=== PATIENT | male | born 1995 | race Caucasian/White ===

== ENCOUNTER → 2018-05-01 18:37 | Outpatient (CLI) | payer OTHER, SELFPAY | PROVIDERS: Visit Provider Physician Assistant | DX: L03.031 Cellulitis of right toe (principal) | CPT/HCPCS: 87070; 87075; 87077; 87147; 87186; 87205 ==

== ENCOUNTER 2018-08-12 13:52 | Day surgery (SDC) | payer OTHER, SELFPAY ==
[2018-08-12 14:29] VITALS: BP 112/69; PULSE 49; RESP 12; TEMP 36.4; O2SAT 97; BMI 37.6
--- NOTE | 2018-08-12 16:34 | PM.PREOP ---
Pre-operative Note Interval Note History & Physical reviewed/Exam performed by Physician: Yes Changes to H&P: No
--- NOTE | 2018-08-12 16:34 | PM.OP.1 ---
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 Surgical intervention is desired. Surgeon: Noni Tan Click Yes if Unassisted: Yes Anesthesia Type: General Operative Notes Closure Type: primary Specimen(s): none sent Estimated Blood Loss (mL): 1 Blood products transfused: none Tourniquet time (min): 10 Procedure in detail: Patient was brought to the operating room and placed on the operative table in supine position. Following induction of general anesthesia , local anesthesia was delivered to the great toe. The foot was prepped and draped in the usual aseptic manner. After check of anesthesia a Alberto drain was placed about the right hallux. The hallux nail was removed gently in total. The surrounding skin medially and laterally on the nail folds was sharply excised of its granulomatous hyperplastic tissue. Examining the tissue, there was no abscess purulence or other indication that it was any different type of tissue then the other surrounding tissues. It was just enlarged. This was larger on the more lateral aspect and a little bit less on the more medial aspect. After resecting it on each side I was able to curette this down as well and the area was irrigated with copious amounts of normal sterile saline. The alberto tourniquet was removed, a prompt hyperemic response was seen to the toe. Nylon sutures were placed in the skin that had had its resection taken from it and closed gently onto the nail bed itself distal to the matrix. The area was cleaned and central aspect dressed with triple antibiotic ointment. Xeroform, 4x4s, and gently placed coban was placed over the toe as was a stockinette and his postsurgical shoe. Complications: none Condition: stable Disposition: PACU Plan for aftercare: Following a period of postoperative monitoring, the patient be discharged home on written and oral postoperative instructions including keeping the dressing dry and intact, avoiding significant ambulation on the foot, elevating the foot when seated at home. DVT prevention techniques have been reviewed. For the 1st postoperative visit the dressing will be changed, and will review opportunity for suture removal at that time or the following week.
[2018-08-12] MEDS: CEFAZOLIN 2 GM/100 ML FROZ.PIGGY IV (16:45)
[2018-08-12] MEDS: BUPIVACAINE 0.5% (PF) VIAL 30 ML INJ (17:12)
--- NOTE | 2018-08-12 17:13 | SUR.OPER ---
Supine on padded OR bed, head on pillow, arms secured on padded arm boards at <90 degrees abduction, legs uncrossed, safety belt at abdomen, tape over blanket over nonoperative leg, bump under operative hip.
[2018-08-12] MEDS: BACITRACIN 28 GM OINT 1 APPLIC TOP (17:16)
--- NOTE | 2018-08-12 17:17 | SUR.OPER ---
[place] drain used as tourniquet on right great toe. Total tourniquet time: 7 minutes.
[2018-08-12 17:31] VITALS: BP 103/56; PULSE 52; RESP 14; TEMP 37; O2SAT 96
[2018-08-12 17:36] VITALS: BP 107/61; PULSE 50; RESP 14; O2SAT 98
[2018-08-12 17:41] VITALS: BP 107/61; PULSE 50; RESP 10; O2SAT 98
[2018-08-12 17:48] VITALS: BP 114/59; PULSE 50; RESP 12; TEMP 36.8; O2SAT 100
[2018-08-12 17:53] VITALS: BP 113/61; PULSE 52; RESP 12; O2SAT 100
== END 2018-08-12 18:25 | disposition home or self-care (01) ==
PROVIDERS: Visit Provider Podiatrist
PROC: 0HTRXZZ Resection of Toe Nail, External Approach (ICD-10-PCS; CPT 11730; principal; 2018-08-12 15:00)
DX: L60.0 Ingrowing nail (principal); L85.9 Epidermal thickening, unspecified
CPT/HCPCS: 11730; J0690; J1100; J1885; J2250; J2405; J2704; J3010

== ENCOUNTER 2019-08-13 03:53 | Observation (INO) | payer OTHER, SELFPAY ==
[2019-08-13] VITALS (19 sets, daily range): BP systolic 110–153; BP diastolic 50–93; PULSE 53–96; RESP 10–99; TEMP 36.2–36.8; O2SAT 90–100; BMI 34.8
--- NOTE | 2019-08-13 04:02 | ED_ITS ---
HPI - General Adult <DO Guillermo Wilkes Last Filed: 08/13/19 18:08> General Chief complaint: Extremity Injury, Upper Stated complaint: exposed bone on right finger Time Seen by Provider: 08/13/19 03:55 Source: patient Mode of arrival: Ambulatory Limitations: no limitations History of Present Illness HPI narrative: 24-year-old [id number] male here for evaluation of an injury that he sustained to his right index finger while at work. Patient states he is working with an air hose and a conveyor belt when his finger got caught up in these devices and a portion of the tip of his right index finger was injured. Patient also has some other abrasions on his hand. He covered the area and a bandage. Was brought to the emergency department. Does not know when his last tetanus shot was. Related Data Previous Rx's Medication Instructions Recorded cephalexin 500 mg PO TID #30 cap 08/13/19 hydrocodone-acetaminophen 1 tab PO Q4HR PRN #40 tab 08/13/19 Allergies Allergy/AdvReac Type Severity Reaction Status Date / Time grass pollen Allergy Mild Seasonal Verified 08/13/19 12:56 Allergies Review of Systems <DO Guillermo Wilkes Last Filed: 08/13/19 18:08> Musculoskeletal Musculoskeletal: Denies numbness and Denies tingling Comments: Pain right index finger Integumentary/Breasts Comments: Cut to the tip of his right index finger Neurologic Neurologic: Denies numbness and Denies tingling Hematologic/Lymphatic Hematologic/Lymphatic: Denies easy bleeding and Denies easy bruising Patient History <DO Guillermo Wilkes Last Filed: 08/13/19 18:08> Medical History Patient denies medical problems (Acute) Social History household members: family Smoking Status: Current some day smoker alcohol intake: current Smoking Status: Current some day smoker (Social smoker bought packs but not for myself) Exam <DO Guillermo Wilkes Last Filed: 08/13/19 18:08> Initial Vital Signs Initial Vital Signs: Vital Signs Temperature 98 F 08/13/19 04:02 Pulse Rate 77 08/13/19 04:02 Respiratory Rate 18 08/13/19 04:02 Blood Pressure 142/81 H 08/13/19 04:02 Pulse Oximetry 97 08/13/19 04:02 Const General: cooperative Limitations: mental status not altered HENDE Head: normal to inspection and normocephalic Resp Effort & Inspection: normal respiratory effort Cardio Pulses: radial pulses present on the right Skin Other: Patient with superficial abrasions located on his middle and ring finger of the right hand. Patient does have an avulsion of the volar aspect of the right index finger from just distal of the D IP joint to the tip of the finger. It does not involve the nail. Soft tissue and bone exposed. Neuro Other: Decreased sensation to the tip of the right index finger. Extrem General: full ROM and capillary refill normal <Heather Garner DO - Last Filed: 08/13/19 14:57> Initial Vital Signs Initial Vital Signs: Vital Signs Temperature 98 F 08/13/19 04:02 Pulse Rate 77 08/13/19 04:02 Respiratory Rate 18 08/13/19 04:02 Blood Pressure 142/81 H 08/13/19 04:02 Pulse Oximetry 97 08/13/19 04:02 Procedures <Zelalem Evans DO - Last Filed: 08/13/19 18:08> Nerve Block Nerve Block 1: Time out performed: Yes Local Anesthetic: lidocaine 1% and with bicarb Amount of anesthesia used (mL): 5 Side: right Nerve Blocks: digital (Index finger) Procedure Successful: Yes Patient Tolerated Procedure: Well Complications: none Course <Zelalem Evans DO - Last Filed: 08/13/19 18:08> Orders Ordered: Discontinued Medications Hydrocodone Bitart/Acetaminophen ([place] 5/325) 1 tab PO Q4HR PRN PRN Reason: Pain, Moderate (4-6) Bupivacaine HCl (Sensorcaine 0.5% (Pf)) 30 ml INJ NOW ONE Stop: 08/13/19 14:13 Last Admin: 08/13/19 13:45 Dose: 10 ml Documented by: BUCKY Cephalexin HCl (Keflex) 500 mg PO TID LIDIA Last Admin: 08/13/19 16:30 Dose: 500 mg Documented by: COLTEN Diphtheria/Tetanus/Acell Pertussis (Adacel) 0.5 ml IM .ONCE ONE Stop: 08/13/19 04:03 Last Admin: 08/13/19 04:15 Dose: 0.5 ml Documented by: DEENA Fentanyl (Sublimaze) 50 mcg IV Q5MIN PRN PRN Reason: Pain, Severe (7-10) Fentanyl (Sublimaze) 0 mcg IV Q5M PRN PRN Reason: Pain, Moderate (4-6) Cefazolin Sodium/Dextrose (Ancef) 2 gm in 100 mls @ 200 mls/hr IV NOW ONE Stop: 08/13/19 05:24 Last Infusion: 08/13/19 05:27 Dose: 0 mls/hr Documented by: Admin: 08/13/19 04:59 Dose: 200 mls/hr Documented by: DEENA Cefazolin Sodium/Dextrose (Ancef) 2 gm in 100 mls @ 200 mls/hr IV NOW ONE Stop: 08/13/19 11:21 Last Infusion: 08/13/19 13:50 Dose: 0 mls/hr Documented by: Admin: 08/13/19 13:30 Dose: 200 mls/hr Documented by: DAVIS Lactated Ringer's (Lactated Ringers) 1,000 mls @ 42 mls/hr IV CONT LIDIA Last Infusion: 08/13/19 15:41 Dose: 0 mls/hr Documented by: Admin: 08/13/19 13:12 Dose: 42 mls/hr Documented by: NILDA Lidocaine/Sodium Bicarbonate (Buffered Lidocaine 10 Ml Syr) 10 ml INJ NOW ONE Stop: 08/13/19 04:03 Last Admin: 08/13/19 04:17 Dose: 10 ml Documented by: DEENA Meperidine HCl (Demerol) 25 mg IV PACUNOW PRN PRN Reason: Moderate pain or shivering Metoclopramide HCl (Reglan) 10 mg IV NOW PRN PRN Reason: Nausea And Vomiting Midazolam HCl (Versed) 2 mg IV NOW PRN PRN Reason: Anxiety Morphine Sulfate (Morphine) 2 mg IV NOW ONE Stop: 08/13/19 08:35 Last Admin: 08/13/19 09:06 Dose: 2 mg Documented by: JESSY Morphine Sulfate (Morphine) 2 mg IV NOW ONE Stop: 08/13/19 10:17 Last Admin: 08/13/19 10:20 Dose: 2 mg Documented by: RSTONE Ondansetron HCl (Zofran) 4 mg IV NOW PRN PRN Reason: Nausea And Vomiting Oxycodone/Acetaminophen (Percocet 5/325) 1 tab PO PACUNOW PRN PRN Reason: Mild or Moderate Pain Vital Signs Vital signs: Vital Signs - 8 hr 08/13/19 08:01 Pulse Rate 64 Respiratory Rate 16 Blood Pressure [Left Arm] 141/66 H Pulse Oximetry 97 <Heather Garner, DO - Last Filed: 08/13/19 14:57> Orders Ordered: Discontinued Medications Hydrocodone Bitart/Acetaminophen ([place] 5/325) 1 tab PO Q4HR PRN PRN Reason: Pain, Moderate (4-6) Bupivacaine HCl (Sensorcaine 0.5% (Pf)) 30 ml INJ NOW ONE Stop: 08/13/19 14:13 Last Admin: 08/13/19 13:45 Dose: 10 ml Documented by: BUCKY Cephalexin HCl (Keflex) 500 mg PO TID LIDIA Last Admin: 08/13/19 16:30 Dose: 500 mg Documented by: OCLTEN Diphtheria/Tetanus/Acell Pertussis (Adacel) 0.5 ml IM .ONCE ONE Stop: 08/13/19 04:03 Last Admin: 08/13/19 04:15 Dose: 0.5 ml Documented by: DEENA Fentanyl (Sublimaze) 50 mcg IV Q5MIN PRN PRN Reason: Pain, Severe (7-10) Fentanyl (Sublimaze) 0 mcg IV Q5M PRN PRN Reason: Pain, Moderate (4-6) Cefazolin Sodium/Dextrose (Ancef) 2 gm in 100 mls @ 200 mls/hr IV NOW ONE Stop: 08/13/19 05:24 Last Infusion: 08/13/19 05:27 Dose: 0 mls/hr Documented by: Admin: 08/13/19 04:59 Dose: 200 mls/hr Documented by: DEENA Cefazolin Sodium/Dextrose (Ancef) 2 gm in 100 mls @ 200 mls/hr IV NOW ONE Stop: 08/13/19 11:21 Last Infusion: 08/13/19 13:50 Dose: 0 mls/hr Documented by: Admin: 08/13/19 13:30 Dose: 200 mls/hr Documented by: DAVIS Lactated Ringer's (Lactated Ringers) 1,000 mls @ 42 mls/hr IV CONT LIDIA Last Infusion: 08/13/19 15:41 Dose: 0 mls/hr Documented by: Admin: 08/13/19 13:12 Dose: 42 mls/hr Documented by: NILDA Lidocaine/Sodium Bicarbonate (Buffered Lidocaine 10 Ml Syr) 10 ml INJ NOW ONE Stop: 08/13/19 04:03 Last Admin: 08/13/19 04:17 Dose: 10 ml Documented by: DEENA Meperidine HCl (Demerol) 25 mg IV PACUNOW PRN PRN Reason: Moderate pain or shivering Metoclopramide HCl (Reglan) 10 mg IV NOW PRN PRN Reason: Nausea And Vomiting Midazolam HCl (Versed) 2 mg IV NOW PRN PRN Reason: Anxiety Morphine Sulfate (Morphine) 2 mg IV NOW ONE Stop: 08/13/19 08:35 Last Admin: 08/13/19 09:06 Dose: 2 mg Documented by: JESSY Morphine Sulfate (Morphine) 2 mg IV NOW ONE Stop: 08/13/19 10:17 Last Admin: 08/13/19 10:20 Dose: 2 mg Documented by: SARAH Ondansetron HCl (Zofran) 4 mg IV NOW PRN PRN Reason: Nausea And Vomiting Oxycodone/Acetaminophen (Percocet 5/325) 1 tab PO PACUNOW PRN PRN Reason: Mild or Moderate Pain Vital Signs Vital signs: Vital Signs - 8 hr 08/13/19 08:01 Pulse Rate 64 Respiratory Rate 16 Blood Pressure [Left Arm] 141/66 H Pulse Oximetry 97 Medical Decision Making <Zelalem Evans DO - Last Filed: 08/13/19 18:08> Lab Data Lab results reviewed: Yes I reviewed the patient's lab results. Result diagrams: 08/13/19 05:00 08/13/19 05:00 Labs: Lab Results 08/13/19 08/13/19 08/13/19 Range/Units 05:00 05:00 08:30 WBC 9.6 (4.5-11.0) X10^3/uL RBC 4.79 (4.5-5.9) X10^6/uL Hgb 14.4 (13.5-17.5) g/dL Hct 42.3 (41-53) % MCV 88.4 (80-100) fL MCH 30.2 (26-34) PG MCHC 34.1 (30-36) % RDW 13.1 (11.6-14.8) % Plt Count 325 (150-400) X10^3/uL Neut % (Auto) 66.9 (50-75) % Lymph % (Auto) 23.4 L (25-40) % Pacific % (Auto) 7.2 (3-14) % Eos % (Auto) 1.9 L (2-4) % Baso % (Auto) 0.6 (0-2) % Neut # (Auto) 6400 (1239-1171) /uL Lymph # (Auto) 2200 (8432-1716) /uL Pacific # (Auto) 700 (0-900) /uL Eos # (Auto) 200 (0-450) /uL Baso # (Auto) 100 (0-100) /uL Sodium 137 (137-145) mmol/L Potassium 3.7 (3.4-5.1) mmol/L Chloride 101 (98-107) mmol/L Carbon Dioxide 27 (22-32) mmol/L BUN 14 (9-20) mg/dL Creatinine 0.96 (0.66-1.25) mg/dL Estimated GFR > 60.0 (>60) mL/min BUN/Creatinine Ratio 14.6 (6-22) Glucose 106 H (70-100) mg/dL Calcium 9.7 (8.4-10.2) mg/dL COVID-19 PCR Negative (Negative) Imaging Data Extremity x-ray #1: Attestation: I personally reviewed and interpreted this imaging study as follows: My Impression: Soft tissue missing however no fractures MDM Narrative Medical decision making narrative: The patient tetanus was updated. Digital block performed so we could evaluate his index finger. Patient does have tissue loss to the volar aspect of the index finger distal to the PIP joint. There is approximately 0.5-1 cm of the distal phalanx exposed. Unable to cover this area with the surrounding soft tissue. The wound was cleaned extensively and Vaseline gauze and bandage placed over the area. Discussed the case with Dr. Madrid who is on for Orthopedics who will come and evaluate the patient in the emergency department for potential surgical intervention. Antibiotics administered. Patient kept NPO. Care turned over to day provider pending ortho evaluation <Heather Patsy, DO - Last Filed: 08/13/19 14:57> Lab Data Labs: Lab Results 08/13/19 08/13/19 08/13/19 Range/Units 05:00 05:00 08:30 WBC 9.6 (4.5-11.0) X10^3/uL RBC 4.79 (4.5-5.9) X10^6/uL Hgb 14.4 (13.5-17.5) g/dL Hct 42.3 (41-53) % MCV 88.4 (80-100) fL MCH 30.2 (26-34) PG MCHC 34.1 (30-36) % RDW 13.1 (11.6-14.8) % Plt Count 325 (150-400) X10^3/uL Neut % (Auto) 66.9 (50-75) % Lymph % (Auto) 23.4 L (25-40) % Pacific % (Auto) 7.2 (3-14) % Eos % (Auto) 1.9 L (2-4) % Baso % (Auto) 0.6 (0-2) % Neut # (Auto) 6400 (7709-8603) /uL Lymph # (Auto) 2200 (4602-3677) /uL Pacific # (Auto) 700 (0-900) /uL Eos # (Auto) 200 (0-450) /uL Baso # (Auto) 100 (0-100) /uL Sodium 137 (137-145) mmol/L Potassium 3.7 (3.4-5.1) mmol/L Chloride 101 (98-107) mmol/L Carbon Dioxide 27 (22-32) mmol/L BUN 14 (9-20) mg/dL Creatinine 0.96 (0.66-1.25) mg/dL Estimated GFR > 60.0 (>60) mL/min BUN/Creatinine Ratio 14.6 (6-22) Glucose 106 H (70-100) mg/dL Calcium 9.7 (8.4-10.2) mg/dL COVID-19 PCR Negative (Negative) MDM Narrative Medical decision making narrative: I received sign-out from Dr. Evans been in to see and evaluate patient he is now requiring some pain medicine. Dr. Madrid has already been in to see patient patient will be going to the OR Discharge Plan Departure Patient Disposition: Admitted as Observation Clinical Impression: Traumatic amputation of tip of index finger Qualifiers: Encounter type: initial encounter Laterality: right Qualified Code(s): S68.110A - Complete traumatic metacarpophalangeal amputation of right index finger, initial encounter Discharge Date/Time: 08/13/19 10:38 Instructions: DI for Prescription Opioid Use, DI for Incision and Drainage Referrals: Cecilia Madrid MD [Physician] - Admit Date/Time: 08/13/19 10:05 Admit Provider: Cecilia Madrid
--- NOTE | 2019-08-13 04:03 | DI.RAD.S_ITS ---
PROCEDURE: XR HAND RT MIN 3V INDICATIONS: Right index finger injury TECHNIQUE: Three views of the hand(s) acquired. COMPARISON: None. FINDINGS: Bones: The bones are intact without fracture. Soft tissues: Soft tissues surrounding the tuft of the 2nd digit are missing, presumably a function of traumatic amputation. The distal phalanx is intact with no evidence of fracture, although there is exposed bone along the volar surface. IMPRESSION: Soft tissue amputation of the 2nd digit surrounding the tuft of the distal phalanx, with exposed bone. Dictated by: Joesph Pineda M.D. on 08/13/2019 at 8:47 Approved by: Joesph Pineda M.D. on 08/13/2019 at 8:49
[2019-08-13] MEDS: TET,DIPH,PERTUSS(ACELL),VAC/PF 0.5 ML SYRINGE IM (04:15)
[2019-08-13] MEDS: LIDO 1%/SOD BICARB 8.4% (10ML) 10 ML SYRINGE INJ (04:17)
[2019-08-13] MEDS: CEFAZOLIN 2 GM/100 ML FROZ.PIGGY IV ×2 (04:59→13:30)
[2019-08-13 05:19] LABS: Add Manual Diff / Slide Review NO; Basophils Absolute Auto 100 /uL (0-100); Basophils Percent Auto 0.6 % (0-2); Eosinophils Absolute Auto 200 /uL (0-450); Eosinophils Percent Auto 1.9 % (2-4); Hematocrit 42.3 % (41-53); Hemoglobin 14.4 g/dL (13.5-17.5); Lymphocytes Absolute Auto 2200 /uL (1100-4500); Lymphocytes Percent Auto 23.4 % (25-40); Mean Corpuscular HGB Conc 34.1 % (30-36); Mean Corpuscular Hemoglobin 30.2 PG (26-34); Mean Corpuscular Volume 88.4 fL (80-100); Monocytes Absolute Auto 700 /uL (0-900); Monocytes Percent Auto 7.2 % (3-14); Neutrophils Absolute Auto 6400 /uL (1500-7000); Neutrophils Percent Auto 66.9 % (50-75); Platelet Count 325 X10^3/uL (150-400); Red Blood Cell Count 4.79 X10^6/uL (4.5-5.9); Red Cell Distribution Width 13.1 % (11.6-14.8); White Blood Cell Count 9.6 X10^3/uL (4.5-11.0)
[2019-08-13 05:30] LABS: BUN Creatinine Ratio 14.6 (6-22); Blood Urea Nitrogen 14 mg/dL (9-20); Calcium 9.7 mg/dL (8.4-10.2); Carbon Dioxide 27 mmol/L (22-32); Chloride 101 mmol/L (98-107); Estimated Glomerular Filt Rate > 60.0 mL/min (>60); Glucose 106 mg/dL (70-100); HEMOLYSIS < 15 (0-50); Potassium 3.7 mmol/L (3.4-5.1); Sodium 137 mmol/L (137-145)
[2019-08-13] MEDS: MORPHINE 2 MG/ML INJ IV ×2 (09:06→10:20)
[2019-08-13 09:31] LABS: COVID19 -Nasal RAPID Negative (Negative)
--- NOTE | 2019-08-13 10:40 | P.HP_ITS ---
History of Present Illness History of Present Illness Date Patient Seen: 08/13/19 Time Patient Seen: 07:40 Date of Onset of Symptoms: 08/13/19 Chief complaint: exposed bone on right finger Narrative: This is a 24-year-old gentleman who works at [employer] who accidentally got his right index finger caught in a mechanical machine last [employer] at about 3:00 a.m.. He was brought to [facility] for evaluation of a partial amputation of his right index finger. He is right-hand dominant he has not had prior problems with his right finger Patient History Medical History Patient denies medical problems (Acute) Family & Social History Social History: household members family Safety & Behavioral: Feels Safe in Current Yes Environment Tobacco & Substance use: Smoking Status Current some day smoker alcohol intake frequency a few times a month Substance Use Type does not use Meds Home Medications and Allergies Home Medications Medication Instructions Recorded Confirmed Type No Known Home Medications 05/01/18 08/12/18 History Allergies Allergy/AdvReac Type Severity Reaction Status Date / Time grass pollen Allergy Mild Seasonal Verified 08/12/18 14:38 Allergies Review of Systems Review of Systems Narrative: Negative in detail no recent fever chills cough cold flu chest pain abdominal pain or heart issues. Exam Vital Signs (past 8 hours): - 08/13/19 04:02 08/13/19 05:30 08/13/19 06:01 Temperature 98 F Pulse Rate 77 61 66 Respiratory Rate 18 17 15 Blood Pressure 142/81 H Blood Pressure [Left Arm] 145/70 H 143/70 H Pulse Oximetry 97 100 98 08/13/19 06:30 08/13/19 08:01 08/13/19 10:11 Temperature Pulse Rate 69 64 70 Respiratory Rate 99 H 16 18 Blood Pressure Blood Pressure [Left Arm] 139/66 141/66 H 146/71 H Pulse Oximetry 97 97 Oxygen Delivery Method Room Air Narrative Exam Narrative: HEENT is benign, lungs are clear, cor regular rate and rhythm common abdomen is benign, S right upper extremity is remarkable for on his there is slight contusion as his middle finger and ring finger on but no obvious deformity his right index finger there is distal amputation with full-thickness tissue loss of the distal tip and then mixed grossly exposed distal tuft with no soft tissue coverage Objective Labs Result Diagrams: 08/13/19 05:00 08/13/19 05:00 Labs: Laboratory Results - last 24 hr 08/13/19 08/13/19 08/13/19 05:00 05:00 08:30 WBC 9.6 RBC 4.79 Hgb 14.4 Hct 42.3 MCV 88.4 MCH 30.2 MCHC 34.1 RDW 13.1 Plt Count 325 Neut % (Auto) 66.9 Lymph % (Auto) 23.4 L Isabella % (Auto) 7.2 Eos % (Auto) 1.9 L Baso % (Auto) 0.6 Neut # (Auto) 6400 Lymph # (Auto) 2200 Isabella # (Auto) 700 Eos # (Auto) 200 Baso # (Auto) 100 Sodium 137 Potassium 3.7 Chloride 101 Carbon Dioxide 27 BUN 14 Creatinine 0.96 Estimated GFR > 60.0 BUN/Creatinine Ratio 14.6 Glucose 106 H Calcium 9.7 COVID-19 PCR Negative x-rays show an exposed distal phalanx with the soft tissue defect, no evidence of fracture otherwise normal-appearing hand x-ray Assessment & Plan Assessment & Plan narrative: Impression is a right index distal partial amputation with exposed distal finger tuft. Plan is for completion amputation and closure. Procedure alternatives risks benefits and complications were discussed in detail with the patient. Were going to go ahead and work on getting this organized scheduled and COVID testing and on and the plan is to proceed with surgery on an emergent basis.
--- NOTE | 2019-08-13 12:43 | PC.ADMIT ---
[address] Admission Note: The patient,Olimpia Pride,24 y/o, was given written information regarding hospital policies, unit procedures and contact persons. Patient's smoking status: Current some day smoker. Vital Signs - 8 hr 08/13/19 05:30 08/13/19 06:01 08/13/19 06:30 Temperature Pulse Rate 61 66 69 Respiratory Rate 17 15 99 H Blood Pressure Blood Pressure [Left Arm] 145/70 H 143/70 H 139/66 Pulse Oximetry 100 98 08/13/19 08:01 08/13/19 10:11 08/13/19 11:00 Temperature Pulse Rate 64 70 96 H Respiratory Rate 16 18 14 Blood Pressure 148/85 H Blood Pressure [Left Arm] 141/66 H 146/71 H Pulse Oximetry 97 97 96 08/13/19 11:29 Temperature 97.3 F L Pulse Rate Respiratory Rate Blood Pressure Blood Pressure [Left Arm] Pulse Oximetry Patient admitted to 212. NPO. OR STAFF HAS JUST ARRIVED TO TAKE PATIENT TO SURGERY. WALLET LOCKED IN [employer]AFE.
[2019-08-13] MEDS: LACTATED RINGERS 1,000 ML 42 ML IV (13:12)
--- NOTE | 2019-08-13 13:17 | PM.OP.1 ---
Operative Date/Time/Diagnoses Date of procedure: 08/13/19 Time of procedure: 13:17 Pre-op diagnosis: right index finger tip amputation Post-op diagnosis: same Procedure & Clinicians Procedure: Right index finger amputation completion and closure distal tip Same procedure as scheduled: Yes Indications: This is a 24-year-old who got his finger caught in an industrial injury noted the acute onset of pain and came to the emergency room with a amputation of the distal tip with grossly exposed bone spot the operating room for completion amputation and closure. Surgeon: Cecilia Madrid Anesthesia Type: General Operative Notes Findings: Grossly exposed distal Tuff and distal phalanx, moderate contamination, closed with some reapproximation of the skin I am was some soft tissue. Estimated Blood Loss (mL): 50 Tourniquet time (min): 15 Procedure in detail: Who is brought to the operating room and underwent the induction of a general anesthesia. I did a dense digital nerve block with 0.5% Marcaine. He got only partial benefit from the block and it was felt that he needed a general anesthesia. The right upper extremity was prepped draped standard sterile fashion. Tourniquet was elevated to 250 mm of mercury. The wound was meticulously irrigated with normal saline the distal tip was grossly contaminated. I meticulously debrided and cleansed the distal tip. There was moderate full-thickness loss stripping bone from the distal tuft up to nearly the base of the nail. There was grossly exposed bone. I meticulously removed the nail and then used a bone cutter to resect exposed distal phalanx with which did not have the possibility of soft tissue coverage. The soft tissue on both the radial and ulnar aspect of the finger as well as along the more palmar aspect was carefully mobilized and the finger was shortened to allow adequate coverage of the residual distal phalanx. The wound was carefully template closed with interrupted chromic. There did appear to be adequate padding distally but I could not get a tight skin closure. The wound was dressed sterilely with Xeroform and a soft dressing. Complications: none Post-operative Condition: stable Disposition: Acute Care Plan for aftercare: Follow-up at [facility] with me next Saturday for wound check and dressing change. Oral antibiotics and pain medications.
[2019-08-13] MEDS: BUPIVACAINE 0.5% (PF) VIAL 30 ML INJ (13:45)
--- NOTE | 2019-08-13 15:44 | SUR.PHASEI ---
PT TRANSFERRED TO ACUTE CARE FLOOR BY Haydee PANDEY RN IN STABLE CONDITION.
[2019-08-13] MEDS: cephALEXin 250 MG CAPSULE 500 MG PO (16:30)
--- NOTE | 2019-08-13 16:47 | PC.NURSE ---
Pt from PACU wide awake. Desires to go home and states has cousins @ home to help. Fellow employee with pt and involved in pt's discharge process. IV dc'd by inventory control supervisor, Luisa. Pt taking oral fluids without difficulty. Has voided in bathroom. Up ad fawn in room. Given dose antibiotic as ordered as per emar. Discharge instructions provided to pt and pt's accompanying fellow employee. Questions answered as appropriate. Pt has valuables in possession from safe. All personal effects accounted for. Scripts given to patient for antibiotic and pain medications. Pt to schedule own follow up appointment for Saturday. Pt escorted from hospital in stable condition via wheelchair with float RN accompanied by fellow employee. Coban dressing to right finger dry and intact.
== END 2019-08-13 16:54 | disposition home or self-care (01) ==
LOC: ED 08:20 → AC 10:05
PROVIDERS: Emergency Medicine; Admitting Provider Orthopaedic Surgery; Emergency Provider Emergency Medicine; Referring Provider Emergency Medicine; Visit Provider Orthopaedic Surgery
PROC: (CPT 26951; principal; 2019-08-13 14:00)
DX: S68.610A Complete traumatic transphalangeal amputation of right index finger, initial encounter (principal); W31.1XXA Contact with metalworking machines, initial encounter; Y93.H3 Activity, building and construction; Y92.69 Other specified industrial and construction area as the place of occurrence of the external cause; Y99.0 Civilian activity done for income or pay; F17.210 Nicotine dependence, cigarettes, uncomplicated; E66.9 Obesity, unspecified; Z11.59 Encounter for screening for other viral diseases
CPT/HCPCS: 26951; 36415; 73130; 80048; 85025; 87635; 99284; G0378; 90715; J0690; J1100; J2250; J2270; J2405; J3010

== ENCOUNTER 2020-06-11 03:04 | Emergency (ER) | payer OTHER, SELFPAY ==
[2019-08-13 10:52] VITALS: BMI 34.8
--- NOTE | 2020-06-11 03:09 | DI.RAD.S_ITS ---
PROCEDURE: XR FINGER RT MIN 2V INDICATIONS: traumatic injury TECHNIQUE: AP hand, 2 views of the 3rd finger(s) acquired. COMPARISON: [facility], CR, XR FINGER(S) RIGHT, 08/24/2019, 14:03. [facility], CR, XR HAND RT MIN 3V, 08/13/2019, 4:08. FINDINGS: Bones: There is a moderately displaced fracture involving the distal aspect of the distal phalanx of the 3rd finger. Amputation is seen of the distal aspect of the 2nd finger, which has been previously demonstrated. Soft tissues: Associated 3rd finger soft tissue injury is seen. IMPRESSION: Fracture with soft tissue injury involving the distal aspect of the distal phalanx of the 3rd finger. Remote amputation of the distal aspect of the 2nd finger. Note: No significant discrepancy from the preliminary report. Dictated by: Jeremias Nath M.D. on 06/11/2020 at 8:05 Approved by: Jeremias Nath M.D. on 06/11/2020 at 8:07
[2020-06-11 03:14] VITALS: BP 134/76; PULSE 68; RESP 18; TEMP 37.2; O2SAT 98; BMI 39.0
[2020-06-11] MEDS: TET,DIPH,PERTUSS(ACELL),VAC/PF 0.5 ML SYRINGE IM (03:18)
[2020-06-11] MEDS: LIDO 1%/SOD BICARB 8.4% (10ML) 10 ML SYRINGE INJ (03:23)
[2020-06-11] MEDS: cephALEXin 250 MG PREPACK 1 BOTTLE MISC (04:08)
[2020-06-11 04:17] VITALS: BP 138/80
[2020-06-11] MEDS: BACITRACIN OINT 0.9 GM PCKT 1 APPLIC TOP (04:22)
[2020-06-11] MEDS: HYDROCODONE/ACET 5/325 PREPACK 1 BOTTLE MISC (04:22)
[2020-06-11] MEDS: HYDROCODONE/ACET 5/325 TABLET 2 TAB PO (04:23)
--- NOTE | 2020-06-11 04:24 | ED.UPPEXIN ---
HPI - Extremity Injury (Upper) General Chief Complaint: Extremity Injury, Upper Stated Complaint: right middle finger injury Time Seen by Provider: 06/11/20 03:05 Source: patient Mode of arrival: Ambulatory Limitations: no limitations History of Present Illness HPI narrative: 25-year-old male smoker with noncontributory medical history presents with a work related injury that was suffered just prior to arrival. He works at up local [employer] facility and was using an L-shaped pusher to load items onto a conveyer when it flipped and crushed his R middle finger. His tetanus is about 7 years old. He denies numbness or tingling, he has no injury other than this finger. He is otherwise well and free of complaint. MD complaint: injury to: right Onset (ago): minute(s) Other Extremity Injury: Right: fingers Other injuries: none Handedness: right Place: work Severity: moderate Relieving factors: rest Exacerbating factors: movement of extremity Context: direct blow and crush Associated symptoms: denies other symptoms Treatments prior to arrival: bandage Related Data Previous Rx's Medication Instructions Recorded cephalexin 500 mg PO TID #30 cap 08/13/19 hydrocodone-acetaminophen 1 tab PO Q4HR PRN #40 tab 08/13/19 cephalexin 500 mg PO QID #28 cap 06/11/20 hydrocodone-acetaminophen 1 tab PO Q4-6H PRN #10 tab 06/11/20 Allergies Allergy/AdvReac Type Severity Reaction Status Date / Time grass pollen Allergy Mild Seasonal Verified 08/13/19 12:56 Allergies Review of Systems Constitutional Constitutional: Denies chills, Denies fatigue, Denies fever(s), Denies frequent falls, Denies lethargy and Denies weakness Eyes Eyes: Denies change in vision, Denies eye discharge, Denies irritation and Denies loss of vision ENT Ears, Nose, Mouth, and Throat: Denies change in voice, Denies dizziness, Denies neck pain, Denies sore throat and Denies throat swelling Cardiovascular Cardiovascular: Denies chest pain, Denies irregular heart rhythm, Denies lightheadedness, Denies palpitations, Denies dyspnea, Denies dyspnea on exertion and Denies orthopnea Respiratory Respiratory: Denies cough, Denies dyspnea, Denies dyspnea on exertion and Denies wheezing Gastrointestinal Gastrointestinal: Denies abdominal pain, Denies change in bowel habits, Denies diarrhea, Denies nausea and Denies vomiting Musculoskeletal Musculoskeletal: Reports deformity, Reports arthralgias, Reports joint swelling, Denies neck pain and Denies numbness Integumentary/Breasts Skin/Breast: Denies pruritus, Denies erythema, Denies rash and Denies wounds Neurologic Neurologic: Denies behavioral changes, Denies confusion, Denies dizziness, Denies frequent falls, Denies loss of vision, Denies numbness and Denies weakness Psychiatric Psychiatric: Denies anxiety, Denies behavioral changes, Denies confusion, Denies depression, Denies homicidal ideation and Denies suicidal ideation Endocrine Endocrine: Denies fatigue, Denies flushing and Denies palpitations Hematologic/Lymphatic Hematologic/Lymphatic: Denies easy bruising Allergic/Immunologic Allergic/Immunologic: Denies urticaria, Denies throat swelling and Denies wheezing Patient History Medical History Patient denies medical problems Social History household members: family Smoking Status: Current some day smoker alcohol intake: current Smoking Status: Current some day smoker alcohol intake frequency: a few times a month Substance Use Type: does not use Exam Narrative Exam Narrative: GEN: AOx3 and in mild distress EYES: Pupils are equal, round, and reactive to light and accommodation. Extraoccular muscles are intact bilaterally. There is no subconjunctival hemorrhage or exudate. CHEST: Lungs are clear to auscultation bilaterally and free of wheezes, rales, or rhonchi. Heart rate is regular rhythm, there are no murmurs, clicks, rubs, or gallops. There is no chest wall tenderness. ABD: Abdomen is soft and nontender. There is no guarding or rebound. Bowel sounds are normal in all 4 quadrants. There is no mass or organomegaly. EXT: Right middle finger with deep laceration, obvious fracture and near tip amputation through the nail fold and wrapping down around to just distal to the D IP. No foreign bodies noted, minimal bleeding. Patient does have a dusky appearance to the soft tissue distal to the laceration but sensation is intact prior to digital block. Otherwise full painless ROM of all extremities with no loss of sensation or strength. SKIN: Warm, pink, and dry. No erythema or rash Initial Vital Signs Initial Vital Signs: Vital Signs Temperature 98.9 F 06/11/20 03:14 Pulse Rate 68 06/11/20 03:14 Respiratory Rate 18 06/11/20 03:14 Blood Pressure 134/76 06/11/20 03:14 Pulse Oximetry 98 06/11/20 03:14 Procedures Laceration Repair Laceration 1: Site: hand Side (If applicable): right Size (cm): 5 Description: irregular and clean Depth: involves muscle layer, involves tendon and [id number] Pre-repair: wound explored Skin layer closed with: nylon Size (cm): 4-0 Number of sutures: 7 Technique: simple, interrupted Nerve Block Nerve Block 1: Time out performed: Yes Local Anesthetic: lidocaine 1% and with bicarb Amount of anesthesia used (mL): 5 Side: right Nerve Blocks: digital Procedure Successful: Yes Patient Tolerated Procedure: Well Complications: none Orthopedic Splinting/Casting Injury #1: Side: right Upper Extremity Injury Location: finger Upper Extremity Immobilizer: finger (other) Post splinting neuro exam: intact Post splinting vascular exam: intact Placed by: Nursing Course Orders Ordered: ED Orders 06/11/20 03:09 XR finger RT min 2V Stat Discontinued Medications Hydrocodone Bitart/Acetaminophen (Hydrocodone/Acet 5/325 Tablet) 2 tab PO NOW ONE Stop: 06/11/20 04:16 Last Admin: 06/11/20 04:23 Dose: 2 tab Documented by: JESSICA Hydrocodone Bitart/Acetaminophen (Hydrocodone/Acet 5/325 Prepack) 1 bottle MISC SEEINSTR ONE Stop: 06/11/20 04:16 Last Admin: 06/11/20 04:22 Dose: 1 bottle Documented by: JESSICA Bacitracin (Bacitracin Oint 0.9 Gm Pckt) 1 applic TOP NOW ONE Stop: 06/11/20 04:16 Last Admin: 06/11/20 04:22 Dose: 1 applic Documented by: JESSICA Cefazolin Sodium (Cephalexin 250 Mg Prepack) 1 bottle MISC SEEINSTR ONE Stop: 06/11/20 03:10 Last Admin: 06/11/20 04:08 Dose: 1 bottle Documented by: JESSICA Diphtheria/Tetanus/Acell Pertussis (Tet,Diph,Pertuss(Acell),Vac/Pf 0.5 Ml Syringe) 0.5 ml IM .ONCE ONE Stop: 06/11/20 03:10 Last Admin: 06/11/20 03:18 Dose: 0.5 ml Documented by: BONNIE Lidocaine/Sodium Bicarbonate (Lido 1%/Sod Bicarb 8.4% (10ml) 10 Ml Syringe) 10 ml INJ NOW ONE Stop: 06/11/20 03:10 Last Admin: 06/11/20 03:23 Dose: 10 ml Documented by: BONNIE Consultations Consultation #1: Discussed with on-call orthopedics (Dr. Villegas) and he recommends approximation repair, washout, antibiotics, splinting and follow-up Vital Signs Vital signs: Vital Signs - 8 hr 06/11/20 03:14 Temperature 98.9 F Pulse Rate 68 Respiratory Rate 18 Blood Pressure 134/76 Pulse Oximetry 98 MDM - Extremity Injury (Upper) Imaging Data Extremity x-ray #1: Radiologist's Impression: Acute 3rd distal tuft fracture with laceration MDM Narrative Medical decision making narrative: Patient with crush injury and near tip amputation of right middle finger. Tetanus is updated, antibiotics initiated, approximation repair. Extensive discussion with the patient about the importance of close follow-up and the concern for possible infection despite best efforts to clean and initiate antibiotics. Also patient understands the severity of his injury and the potential for soft tissue loss and even partial amputation if wound healing is not appropriate. Patient has had return precautions described and questions answered to his apparent satisfaction Discharge Plan Departure Patient Disposition: Home Clinical Impression: Open fracture of middle phalanx of finger Qualifiers: Encounter type: initial encounter Finger: middle finger Fracture alignment: displaced Laterality: right Qualified Code(s): S62.622B - Displaced fracture of middle phalanx of right middle finger, initial encounter for open fracture Instructions: DI for Open Fracture Activity Restrictions/Additional Instructions: *You have been diagnosed with [open fracture of distal tip of right middle finger with nail bed involvement.] *What to do: *Take medications as directed *Follow up with Dr. Villegas at [facility] in 2-3 days, call for an appointment. Let them know you were seen in the Emergency Department and that we ask that you be seen in follow up *Return to ER if you should have any new, worsening or concerning symptoms, such as [increasing pain, redness, tingling, red streaks up your arm or other bothersome symptoms] Splint Care: Keep splint clean and dry. Elevated affected body part to decrease swelling. OK to use ice pack on the affected body part. Use for 15-20 minutes each time, for 5-6x per day. If you develop worsening pain, numbness, tingling, discoloration of the affected body part, loosen the splint by loosening the TY wrap, and either see your doctor for an urgent re-assessment, or return to the Emergency Department. Return to the Emergency Department for any new or worsening symptoms. Prescriptions: New cephalexin 500 mg capsule 500 mg PO QID Qty: 28 RF: 0 hydrocodone-acetaminophen 5-325 mg tablet 1 tab PO Q4-6H PRN (Reason: pain) Qty: 10 RF: 0 No Action cephalexin 250 mg Capsule 500 mg PO TID Qty: 30 RF: 0 hydrocodone-acetaminophen 5-325 mg Tablet 1 tab PO Q4HR PRN (Reason: Pain, Moderate (4-6)) Qty: 40 RF: 0 Referrals: Rob Villegas MD [Physician] -
[2020-06-11 04:31] VITALS: BP 180/86
--- NOTE | 2020-06-11 04:46 | PC.NURSE ---
He had crushing injury to right middle finger,deep lac noted from nail bed wrapping around his finger to distal dip joint,minimal bleeding,DR gay cleaned and sutured the wound.A bulky tube gauze dressing was applied after.
--- NOTE | 2020-06-11 05:09 | PC.NURSE ---
He was given metal padded finger splint and deng wrap for use when he changes dressing on Saturday with instructions on wound cleaning and dressing at home.
== END 2020-06-11 05:12 | disposition home or self-care (01) ==
PROVIDERS: Emergency Provider Emergency Medicine
DX: S62.622B Displaced fracture of middle phalanx of right middle finger, initial encounter for open fracture (principal); W31.89XA Contact with other specified machinery, initial encounter; Y99.0 Civilian activity done for income or pay; Z23 Encounter for immunization
CPT/HCPCS: 13131; 64450; 73140; 90471; 99284; 90715